=== PATIENT | female | born 1960 | race Caucasian/White ===

== ENCOUNTER 2018-02-11 08:00 | Outpatient (CLI) | payer BC, MEDICAID | END 2018-02-11 08:01 | disposition home or self-care (01) | LOC: LAB.R 08:00 | PROVIDERS: ATTEND Family Medicine | DX: M25.559 Pain in unspecified hip (principal) | CPT/HCPCS: 87491; 87591 ==

== ENCOUNTER 2018-06-07 08:55 | Observation (INO) | payer MEDICAID ==
[2018-06-07 09:16] LABS: BASOPHILS % (AUTO) 0.8 %; EOSINOPHILS # (AUTO) 0.1 10^3/uL (0.0-0.7); EOSINOPHILS % (AUTO) 1.8 %; HGB - HEMOGLOBIN 14.7 g/dL (12.0-16.0); LYMPHOCYTES # (AUTO) 1.7 10^3/uL (1.5-3.5); LYMPHOCYTES % (AUTO) 28.1 %; MEAN CORPUSCULAR HEMOGLOBIN 29.2 pg (27.0-31.0); MEAN CORPUSCULAR HGB CONC 33.5 g/dL (32.0-36.0); MEAN CORPUSCULAR VOLUME 87.2 fL (81.0-99.0); MEAN PLATELET VOLUME 9.6 fL (7.9-10.8); MONOCYTES # (AUTO) 0.5 10^3/uL (0.0-1.0); MONOCYTES % (AUTO) 8.1 %; NEUTROPHILS # (AUTO) 3.7 10^3/uL (1.5-6.6); NEUTROPHILS % (AUTO) 61.2 %; PLT - PLATELET COUNT 186 10^3/uL (130-450); RED BLOOD COUNT 5.03 10^6/uL (4.20-5.40); RED CELL DISTRIBUTION WIDTH 13.7 % (12.0-15.0)
[2018-06-07 09:33] LABS: ALBUMIN 4.4 g/dL (3.2-5.5); ALBUMIN/GLOBULIN RATIO 1.6 (1.0-2.2); BILIRUBIN,TOTAL 1.1 mg/dL (0.2-1.0); CALCIUM 9.6 mg/dL (8.5-10.3); CREATININE 0.7 mg/dL (0.4-1.0); TOTAL PROTEIN 7.2 g/dL (6.7-8.2)
--- NOTE | 2018-06-07 09:36 | ED Physician Documentation ---
PD HPI FOCAL NEURO - Stated complaint Stated Complaint: CHEST PX,DIZZY - Chief complaint Chief Complaint: General - History obtained from History obtained from: Patient - History of Present Illness Timing - onset: How many weeks ago (1 week of posterior neck pain, sharp and worse with movement. No apparent injury. With it she has had vertigo and dizziness associated with movement. She notes worse in the mornings when first getting up but continued through the day. She does have a feeling of off balance with walking most notable last evening. Yesterday she also noted some transient blurring of vision in the right eye. There is no loss of vision per se. She has not had any numbness tingling or weakness in the extremities. She has been able to talk adequately.) Timing - duration: Weeks (1) Timing - details: Abrupt onset, Still present, Waxing and waning Severity of deficit: Moderate Weakness: No: Face, Arm, Hand, Leg Numbness: No: Face, Arm, Hand, Leg Associated symptoms: Headache (posterior neck, more to the left, but both sides. ), Nausea / vomiting (nauseated but no vomiting). No: Syncope, Fall, Head injury Contributing factors: negative: Anticoagulated, Vascular dz, Atrial fibrillation Baseline status: positive: A&OX3, ambulatory, indep Similar symptoms before: Has not had sx before Recently seen: Not recently seen Review of Systems Constitutional: denies: Fever, Chills Eyes: reports: Decreased vision (last evening briefly, with diminished vision right eye for several minutes, then improved.). denies: Photophobia Ears: denies: Loss of hearing, Ear pain, Drainage/discharge, Tinnitus/ringing Nose: denies: Rhinorrhea / runny nose, Congestion Throat: denies: Sore throat Cardiac: denies: Chest pain / pressure, Palpitations Respiratory: denies: Dyspnea, Cough GI: reports: Nausea. denies: Abdominal Pain, Vomiting, Diarrhea : denies: Dysuria, Frequency Skin: denies: Rash, Lesions Neurologic: reports: Headache (posterior neck/occipital headache for several days as in HPI.). denies: Generalized weakness, Focal weakness, Numbness, Near syncope, Altered mental status PD PAST MEDICAL HISTORY - Past Medical History Past Medical History: No - Past Surgical History Past Surgical History: No - Present Medications Home Medications: Ambulatory Orders Medication Instructions Recorded Confirmed No Known Home Medications [No 06/07/18 06/07/18 Known Home Medications] - Allergies Allergies/Adverse Reactions: Allergies Allergy/AdvReac Type Severity Reaction Status Date / Time Penicillins Allergy Unknown Verified 06/07/18 09:04 muscle relaxer AdvReac Unknown Uncoded 06/07/18 09:05 pain reliever AdvReac Unknown Uncoded 06/07/18 09:05 - Social History Does the pt smoke?: No Smoking Status: Never smoker Does the pt drink ETOH?: Yes ETOH Use: Wine Does the pt have substance abuse?: No - Family History Family history: reports: Non contributory - Immunizations Immunizations are current?: Yes PD ED PE NORMAL - Vitals Vital signs reviewed: Yes - General General: Alert and oriented X 3, Well developed/nourished - HEENT HEENT: Atraumatic, PERRL, EOMI (mild nystagmus to the left), Pharynx benign - Neck Neck: Supple, no meningeal sign, No adenopathy, No JVD, No bruit - Cardiac Cardiac: RRR, No murmur - Respiratory Respiratory: Clear bilaterally - Abdomen Abdomen: Soft, Non tender - Back Back: No CVA TTP - Derm Derm: Normal color, Warm and dry, No rash - Extremities Extremities: No deformity, No tenderness to palpate, Normal ROM s pain, No edema , No calf tenderness / cord - Neuro Neuro: Alert and oriented X 3, character artist 2-12 intact, No motor deficit, No sensory deficit, Normal speech, Other (appears dizzy and off balance with sitting and standing. No ataxia per se with extremity movement. ) Eye Opening: Spontaneous Motor: Obeys Commands Verbal: Oriented GCS Score: 15 - Psych Psych: Normal mood, Normal affect NIHSS - Level of Consciousness Level of consciousness: (0) Alert, Keenly responsive LOC Questions: (0) Answers both Q's correct LOC Commands: (0) Performs both correctly - Gaze Best Gaze: (0) Normal - Visual Visual: (0) No loss - Facial Palsy Facial Palsy: (0) Normal, symmetrical movement - Motor Arms (both separate) Motor Arm (right): (0) No drift Motor Arm (left): (0) No drift - Motor Legs (both separate) Motor Leg (right): (0) No drift Motor Leg (left): (0) No drift - Limb Ataxia Limb Ataxia: (0) Absent - Sensory Sensory: (0) Normal - Best Language Best Language: (0) No aphasia - Dysarthria Dysarthria: (0) Normal - Extinction and Inattention (formally neg Extinction and inattention: (0) No abnormality - Total Score/Results Total Score/Result: 0 Results - Vitals Vitals: Vital Signs - 24 hr 06/07/18 06/07/18 06/07/18 09:00 09:30 12:08 Temperature 36.2 C L Heart Rate 72 61 74 Respiratory 18 13 14 Rate Blood Pressure 142/95 H 120/69 116/58 L O2 Saturation 97 100 100 06/07/18 06/07/18 12:30 13:00 Temperature Heart Rate 53 L 66 Respiratory 13 16 Rate Blood Pressure 110/59 L 109/75 O2 Saturation 98 100 Oxygen O2 Source Room air - Labs Labs: Laboratory Tests 06/07/18 06/07/18 06/07/18 09:10 09:10 09:10 WBC 6.0 RBC 5.03 Hgb 14.7 Hct 43.9 MCV 87.2 MCH 29.2 MCHC 33.5 RDW 13.7 Plt Count 186 MPV 9.6 Neut # (Auto) 3.7 Lymph # (Auto) 1.7 [place] # (Auto) 0.5 Eos # (Auto) 0.1 Baso # (Auto) 0.0 Absolute Nucleated RBC 0.01 Nucleated RBC % 0.1 ESR Sodium 139 Potassium 3.3 L Chloride 103 Carbon Dioxide 26 Anion Gap 10.0 BUN 13 Creatinine 0.7 Estimated GFR (MDRD) 86 L Glucose 116 H Calcium 9.6 Total Bilirubin 1.1 H AST 22 ALT 21 Alkaline Phosphatase 65 Troponin I < 0.04 Total Protein 7.2 Albumin 4.4 Globulin 2.8 Albumin/Globulin Ratio 1.6 Lipase 42 06/07/18 09:10 WBC RBC Hgb Hct MCV MCH MCHC RDW Plt Count MPV Neut # (Auto) Lymph # (Auto) [place] # (Auto) Eos # (Auto) Baso # (Auto) Absolute Nucleated RBC Nucleated RBC % ESR 5 Sodium Potassium Chloride Carbon Dioxide Anion Gap BUN Creatinine Estimated GFR (MDRD) Glucose Calcium Total Bilirubin AST ALT Alkaline Phosphatase Troponin I Total Protein Albumin Globulin Albumin/Globulin Ratio Lipase PD MEDICAL DECISION MAKING - ED course Complexity details: reviewed results, considered differential (Her neck pain may be musculoskeletal but associated with symptoms of vertigo, brief visual abnormality and a feeling of ataxia, I am worried about posterior circulation in particular for vertebral dissection. CTA was ordered of the neck and head. The results did show some thickening of the wall in the right vertebral artery that could be consistent with intramural dissection. MRI would be more conclusive. I talked with [facility] neurology who suggested observation overnight with MRI of the brain to look for cerebellar infarct and also MRA without contrast and fat weighting to distinguish thickening of the vessel wall versus hematoma. I discussed with the the patient and she is agreeable for treatment. I talked with the hospitalist who will see the patient in the hospital.), d/w patient, d/w personnel consultant (Neurology at [facility] - Her symptoms sound like posterior circulation insufficiency. The neck pain associated with the CTA finding of some thickening of the vessel that could correspond with mural thrombus would suggest the possibility of intermittent flap giving intermittent symptoms. I talked with neurology at [facility] who suggested observation with MRI of brain tomorrow to look for small posterior circulation strokes and also MRA without contrast but that we did to look for blood in the vessel wall that would distinguish dissection or not. To given aspirin in the meanwhile.) - Sepsis Event Vital Signs: Vital Signs - 24 hr 06/07/18 06/07/18 06/07/18 09:00 09:30 12:08 Temperature 36.2 C L Heart Rate 72 61 74 Respiratory 18 13 14 Rate Blood Pressure 142/95 H 120/69 116/58 L O2 Saturation 97 100 100 06/07/18 06/07/18 12:30 13:00 Temperature Heart Rate 53 L 66 Respiratory 13 16 Rate Blood Pressure 110/59 L 109/75 O2 Saturation 98 100 Oxygen O2 Source Room air Departure - Departure Disposition: ED Place in Observation Clinical Impression: Neck pain, Vertigo, Visual disturbance, Acute posterior circulation transient ischemic attack Condition: Stable Record reviewed to determine appropriate education?: Yes
[2018-06-07] MEDS ORDERED: ONDANSETRON 4 MG/2 ML VIAL IVP STA (10:08)
[2018-06-07] MEDS ORDERED: MECLIZINE 12.5 MG TABLET PO STA (10:08)
[2018-06-07] MEDS ORDERED: KETOROLAC 60 MG/2 ML VIAL IVP STA (10:08)
[2018-06-07] MEDS ORDERED: IOPAMIDOL-300 100 ML VIAL ONE (10:10)
[2018-06-07] MEDS ORDERED: IOPAMIDOL-300 100 ML VIAL IVP ONE (10:37)
--- NOTE | 2018-06-07 11:25 | XRAY Report ---
Reason: chest pressure Procedure Date: 06/07/2018 Accession Number: [id number] / [id number] Procedure: XR - Chest 2 View X-Ray CPT Code: 40730 FULL RESULT: EXAM: CHEST RADIOGRAPHY EXAM DATE: 06/07/2018 10:09 AM. CLINICAL HISTORY: Chest pain and pressure, dizzy, SOA. COMPARISON: 07/11/2011. TECHNIQUE: 2 views. FINDINGS: Lungs/Pleura: No focal opacities evident. No pleural effusion. No pneumothorax. Normal volumes. Mediastinum: Heart and mediastinal contours are unremarkable. Other: None. IMPRESSION: No acute abnormality of the chest. RAD[facility]
--- NOTE | 2018-06-07 11:27 | CT Report ---
Reason: posterior neck pain with vertigo/visual change Procedure Date: 06/07/2018 Accession Number: [id number] / [id number] Procedure: CT - Neck Angio CPT Code: FULL RESULT: EXAM: CT ANGIOGRAM NECK EXAM DATE: 06/07/2018 10:44 AM. CLINICAL HISTORY: Vertigo. COMPARISON: None. TECHNIQUE: Routine axial helical imaging was performed from the skull base through the aortic arch. Reconstructions: Routine multiplanar 3D MIP reconstructions. IV Contrast: 100 mL Isovue-300. Evaluation of arterial stenosis is based on a NASCET method of measurement. In accordance with CT protocol optimization, one or more of the following dose reduction techniques were utilized for this exam: automated exposure control, adjustment of mA and/or KV based on patient size, or use of iterative reconstructive technique. FINDINGS: As far as visualized, no acute abnormality or significant stenosis of the left cervical carotid artery. The common carotid artery origin on the left is not included on this study. Minimal irregularity of the contours of the lumen of the proximal to mid left cervical ICA without flow-limiting stenosis; imaging artifact versus mild fibromuscular dysplasia. No dissection. Unremarkable appearance of the right cervical carotid artery, no acute abnormality or significant stenosis. Minimal to mild stenosis and irregularity of the right vertebral artery V3 segment. The wall may be mildly thickened. No discrete filling defect. Stenosis does not appear hemodynamically significant. Unremarkable appearance of the left cervical vertebral artery. IMPRESSION: 1. Mild stenosis and irregularity of the right vertebral artery V3 segment. Stenosis does not appear flow-limiting. The arterial wall may be thickened. The differential includes atherosclerotic disease, fibromuscular dysplasia and arterial dissection. 2. No acute abnormality or focal flow-limiting stenosis of the cervical carotid arteries or left cervical vertebral artery. 3. Minimal nodular contour irregularity of the left cervical ICA which may represent fibromuscular dysplasia. [facility] ADDENDUM: 06/07/18 12:18 Findings discussed by telephone with the ordering provider, Dr. Rosalio Juarez, at 12:18 PM. Regarding the possibility of vertebral artery dissection, MRA/MRI of this region was discussed as a possible additional imaging test that might help clarify the presence or absence of vertebral artery dissection.
--- NOTE | 2018-06-07 11:27 | CT Report ---
Reason: posterior neck pain and headache; vertigo Procedure Date: 06/07/2018 Accession Number: [id number] / [id number] Procedure: CT - Head Angio CPT Code: FULL RESULT: EXAM: CT ANGIOGRAM HEAD. CT SCAN OF THE HEAD WITHOUT AND WITH CONTRAST. EXAM DATE: 06/07/2018 10:44 AM CLINICAL HISTORY: Vertigo. COMPARISON: None. TECHNIQUE: - CT Scan Head: Using a multidetector scanner, axial images were acquired from the foramen magnum to the skull vertex prior to and following contrast administration. - CT Angiogram: Using a multidetector scanner, high-resolution axial images were acquired from the skull base through vertex following rapid infusion of intravenous contrast. Reformats: Multiplanar MIP reformats were reconstructed. Nascet criteria used for stenosis measurement. IV Contrast: 100 mL Isovue-300. In accordance with CT protocol optimization, one or more of the following dose reduction techniques were utilized for this exam: automated exposure control, adjustment of mA and/or KV based on patient size, or use of iterative reconstructive technique. FINDINGS: Brain CT: Normal brain volume for age. No CT evidence for acute hemorrhage or stroke. No abnormal brain enhancement. Intact skull. No acute sinus or mastoid disease. Head CT angiogram: No intracranial vertebrobasilar insufficiency. Patent distal internal carotid arteries. No intracranial large-vessel occlusion, focal filling defect or proximal flow-limiting stenosis. Patent right posterior communicating artery. Patent anterior communicating artery. No evidence for aneurysm of the [place]. IMPRESSION: 1. Negative CT of the brain without and with IV contrast. 2. Negative head CTA, no evidence for large-vessel occlusion. 3. These findings do not preclude the possibility of a smaller acute ischemic infarct. RADIA
[2018-06-07] MEDS ORDERED: ASPIRIN CHEW 81 MG TABLET PO STA (13:08)
[2018-06-07] MEDS ORDERED: SODIUM CHLORIDE FLUSH 0.9% 10 ML SYRINGE IVP PRN (13:18)
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
[2018-06-07] MEDS ORDERED: GI COCKTAIL 120 ML BOTTLE PO PRN (16:58)
[2018-06-07 18:02] LABS: HB2 TOTAL 15.6 g/dL; HEMOGLOBIN A1C 0.54 g/dL; HEMOGLOBIN A1C % 5.3 % (4.6-6.2)
[2018-06-07] MEDS ORDERED: CLOPIDOGREL 300 MG TABLET PO SCH (19:37)
[2018-06-07] MEDS: ATORVASTATIN 40 MG TABLET PO SCH (20:25)
[2018-06-07] MEDS: SODIUM CHLORIDE FLUSH 0.9% 10 ML SYRINGE IVP SCH ×2 (20:26→23:44)
[2018-06-07] MEDS ORDERED: TEMAZEPAM 7.5 MG CAPSULE PO PRN (20:47)
[2018-06-07] MEDS ORDERED: ACETAMINOPHEN 325 MG TABLET PO PRN (20:47)
[2018-06-08 05:57] LABS: BASOPHILS % (AUTO) 0.7 %; EOSINOPHILS # (AUTO) 0.2 10^3/uL (0.0-0.7); EOSINOPHILS % (AUTO) 3.1 %; LYMPHOCYTES # (AUTO) 2.2 10^3/uL (1.5-3.5); LYMPHOCYTES % (AUTO) 42.7 %; MEAN CORPUSCULAR HEMOGLOBIN 29.3 pg (27.0-31.0); MEAN CORPUSCULAR HGB CONC 33.5 g/dL (32.0-36.0); MEAN CORPUSCULAR VOLUME 87.7 fL (81.0-99.0); MEAN PLATELET VOLUME 9.4 fL (7.9-10.8); MONOCYTES # (AUTO) 0.4 10^3/uL (0.0-1.0); MONOCYTES % (AUTO) 8.1 %; NEUTROPHILS # (AUTO) 2.4 10^3/uL (1.5-6.6); NEUTROPHILS % (AUTO) 45.4 %; PLT - PLATELET COUNT 173 10^3/uL (130-450); RED BLOOD COUNT 4.77 10^6/uL (4.20-5.40); RED CELL DISTRIBUTION WIDTH 14.2 % (12.0-15.0); WHITE BLOOD COUNT 5.2 x10^3/uL (4.8-10.8)
[2018-06-08 06:12] LABS: ALBUMIN 3.8 g/dL (3.2-5.5); ALBUMIN/GLOBULIN RATIO 1.7 (1.0-2.2); BILIRUBIN,TOTAL 0.5 mg/dL (0.2-1.0); CALCIUM 9.2 mg/dL (8.5-10.3); CREATININE 0.7 mg/dL (0.4-1.0); TOTAL PROTEIN 6.1 g/dL (6.7-8.2)
[2018-06-08 06:19] LABS: CHOL/HDL RATIO 1.9 (<4.4); CHOLESTEROL 239 mg/dL; HDL CHOLESTEROL 125 mg/dL; LDL CHOLESTEROL,CALCULATED 103 mg/dL; LDL/HDL RATIO 0.8 (<4.4); VLDL CHOLESTEROL 11 mg/dL
[2018-06-08] MEDS ORDERED: POLYETHYLENE GLYCOL 3350 17 GM PACKET PO SCH (09:00)
[2018-06-08] MEDS: ASPIRIN EC 325 MG TABLET PO SCH ×2 (09:47→09:48)
[2018-06-08] MEDS: SODIUM CHLORIDE FLUSH 0.9% 10 ML SYRINGE IVP SCH ×2 (09:47→17:07)
--- NOTE | 2018-06-08 10:08 | MRI Report ---
Reason: CVA Procedure Date: 06/08/2018 Accession Number: [id number] / [id number] Procedure: MRI - Brain W/O CPT Code: FULL RESULT: MRI BRAIN WITHOUT CONTRAST EXAM DATE: 06/08/2018. INDICATION: 57-year-old female with vertigo. Concern for CVA. Please assess. TECHNIQUE: 1. T1 sagittal and fat-saturated T2 coronal. 2. Axial T1 3-D, FLAIR, T2* and DWI. COMPARISON: Head CT 06/07/2018. FINDINGS: There is mild generalized prominence of the cerebral cortical sulci. Mild third/lateral ventriculomegaly is again demonstrated, likely ex vacuo. A mild amount of white matter disease is identified in the supratentorial brain, manifested as tiny T2 hyperintensities that are scattered throughout the frontal white matter. A deep/subcortical distribution predominates. There appears to be little if any involvement of the immediate periventricular regions. Flow voids are demonstrated in the main intracranial arteries. No abnormal diffusion restriction is demonstrated. No evidence of acute or chronic hemorrhage on T2* GRE sequence. No abnormal extra-axial fluid collection. No mass effect or midline shift. Limited assessment of the orbits reveals no gross pathology. The paranasal sinuses are essentially clear. No significant mastoid or middle ear effusion is demonstrated. IMPRESSION: 1. A very mild amount of white matter disease is identified as described. The findings are relatively nonspecific; however, this most likely represents chronic microangiopathy. 2. Otherwise unremarkable, unenhanced brain MRI. In particular, no evidence of infarction, hemorrhage or other acute brain pathology.
--- NOTE | 2018-06-08 10:12 | MRI Report ---
Reason: CVA Procedure Date: 06/08/2018 Accession Number: [id number] / [id number] Procedure: MRI - Angio Brain W/O (MRA) CPT Code: FULL RESULT: MR ANGIOGRAM HEAD WITHOUT CONTRAST INDICATION: 57-year-old female with vertigo. Concern for possible infarction. TECHNIQUE: 3-D [id number] MR angiography. COMPARISON: CT angiogram 06/07/2018. FINDINGS: The internal carotid arteries appear widely patent bilaterally. No definite ICA aneurysm is identified. The A1 segments of the anterior cerebral arteries are codominant. A tiny anterior communicating artery is demonstrated. There appears to be good flow-related enhancement in the imaged A2 branches bilaterally. The middle cerebral arteries are unremarkable. No aneurysm is demonstrated and there is no evidence of occlusion or hemodynamically significant stenosis affecting main branches of either MCA. The vertebral arteries are patent bilaterally. Neither PICA is identified in the field of view provided. The PICA territories may be supplied by the ipsilateral AICAs (normal anatomical variants). The basilar artery, superior cerebellar arteries and posterior cerebral arteries appear widely patent. No aneurysms are identified arising from the basilar artery trunk or apex. There is a small to moderate-sized right posterior communicating artery. No definite left posterior communicating artery is demonstrated. IMPRESSION: Unremarkable pilot station of [place] MR angiogram. No evidence of occlusion or hemodynamically significant stenosis affecting main branches of the anterior or posterior circulations.
[2018-06-08] MEDS ORDERED: GADOBUTROL 10 MMOL/10 ML VIAL ONE (15:13)
[2018-06-08] MEDS ORDERED: GADOBUTROL 10 MMOL/10 ML VIAL IVP ONE (16:35)
--- NOTE | 2018-06-08 17:19 | DISCHARGE SUMMARY ---
Discharge Summary Discharge Date: 06/08/18 Discharging Provider: DARLINE Alves Code Status: Attempt Resuscitation Condition at Discharge: Good Discharge Disposition: 01 Home, Self Care - ALLERGIES Allergies/Adverse Reactions: Allergies Allergy/AdvReac Type Severity Reaction Status Date / Time Penicillins Allergy Unknown Verified 06/07/18 09:04 muscle relaxer AdvReac Unknown Uncoded 06/07/18 09:05 pain reliever AdvReac Unknown Uncoded 06/07/18 09:05 - MEDICATIONS Home Medications: Ambulatory Orders Medication Instructions Recorded Confirmed No Known Home Medications [No 06/07/18 06/08/18 Known Home Medications] - PHYSICAL EXAM AT DISCHARGE General Appearance: positive: No acute distress, Alert Eyes Bilateral: positive: Normal inspection, PERRL ENT: positive: ENT inspection nml, Pharynx nml, No signs of dehydration Neck: positive: Nml inspection, Thyroid nml, No JVD, Trachea midline Respiratory: positive: Chest non-tender, No respiratory distress, Breath sounds nml Cardiovascular: positive: Regular rate & rhythm, No murmur, No gallop Peripheral Pulses: positive: 2+ Abdomen: positive: Non-tender, No organomegaly, Nml bowel sounds Back: positive: Nml inspection Skin: positive: Color nml, No rash, Warm, Dry Extremities: positive: Non-tender, Full ROM, Nml appearance, No pedal edema Neurologic/Psychiatric: positive: Oriented x3, CN's nml (2-12), Motor nml, Sensation nml, Mood/affect nml Reflexes: Bicep (R): 4+, Bicep (L): 4+ - LABS Result Diagrams: 06/08/18 05:42 06/08/18 05:42 - DIAGNOSTIC IMAGING Diagnostic Imaging Results: Prelim report reviewed, Final report reviewed - TIME SPENT Time Spent in Discharge (Minutes): 55
--- NOTE | 2018-06-08 18:28 | MRI Report ---
Reason: dissection, visual disturbance Procedure Date: 06/08/2018 Accession Number: [id number] / [id number] Procedure: MRI - Angio Neck W/WO (MRA) CPT Code: FULL RESULT: EXAM: MR ANGIOGRAM NECK EXAM DATE: 06/08/2018 04:26 PM. CLINICAL HISTORY: 57-year-old with visual disturbances and prior CTA suggesting potential right vertebral artery dissection COMPARISON: CTA head and neck 06/07/2018; MRA head 06/08/2018. TECHNIQUE: Multiplanar, multisequence MRA sequences of the neck were performed. Other: None. Post-processing: Multiplanar 3D MIP reconstructions. IV Contrast: 10 cc Gadavist. Evaluation of arterial stenosis is based on a NASCET method of measurement. FINDINGS: RIGHT Common Carotid: Patent. No dissection or significant stenosis. Internal Carotid: Patent. No dissection or significant stenosis. External Carotid: Patent. No dissection or significant stenosis. Vertebral: There is T1 signal hyperintensity around the wall of the distal V3 segment of the right vertebral artery with mild irregularity and mild stenosis of the vertebral artery dissection. LEFT Common Carotid: Patent. No dissection or significant stenosis. Internal Carotid: Minimal nodular contour irregularity of the cervical ICA similar to CT 06/07/2018. Finding may represent fibromuscular dysplasia. External Carotid: Patent. No dissection or significant stenosis. Vertebral: Patent. No dissection or significant stenosis. Intracranial Circulation: No stenoses or aneurysms in the visualized portion of the intracranial vasculature. Other: The soft tissues, bones, and lung apices are unremarkable. IMPRESSION: 1. There is short segment of T1 signal hyperintensity around the wall of the distal V3 segment of the right vertebral artery with mild irregularity and mild stenosis of the vertebral artery dissection, that appears similar to CTA 06/07/2018. Finding is concerning for focal short segment of dissection though the fibromuscular dysplasia is not excluded. 2. Minimal nodular contour irregularity of the cervical ICA similar to CT 06/07/2018. Finding may represent fibromuscular dysplasia. 3. Otherwise the vasculature of the neck appears normal. RADIA
--- NOTE | 2018-06-08 21:35 | Discharge Plan ---
Discharge Plan Disposition: 01 Home, Self Care Prescriptions: Aspirin EC [Ecotrin] 325 mg PO DAILY #30 tablet Atorvastatin [Lipitor] 20 mg PO QPM #30 tablet Clopidogrel [Plavix] 75 mg PO DAILY #30 tablet Diet: Cardiac Activity Restrictions: No Restrictions Additional Instructions or Follow Up instructions: Follow up with PCP and with outpatient neurology No Smoking: If you smoke, Please STOP! Call for help.
[2018-06-08] MEDS: ATORVASTATIN 40 MG TABLET PO SCH (21:37)
[2018-06-08 21:49] VITALS: BP 124/54
--- NOTE | 2018-06-09 05:42 | DISCHARGE SUMMARY ---
Physician: Sobeida Vaughan MD DATE OF ADMISSION: 06/07/2018 DATE OF DISCHARGE: 06/08/2018 DISCHARGE DIAGNOSES 1. Distal right vertebral artery dissection/short segment. MRI negative for cerebrovascular accident. 2. Possible fibromuscular dysplasia of cervical internal carotid artery. 3. Cervical radiculopathy and degenerative spine disease with symptoms of bilateral neck and shoulder pain. 4. Admission problems of vertigo, neck pain and headache could be secondary to cervical radiculopathy versus short segment right vertebral artery dissection. It is unknown whether there was clinical significance of the vertebral dissection or this was an incidental finding. 5. Perimenopausal symptoms, for which we recommend outpatient followup. DISCHARGE MEDICATIONS 1. Plavix 75 mg p.o. daily. 2. Lipitor 20 mg p.o. daily. 3. Aspirin 325 mg p.o. daily. DISCHARGE RECOMMENDATIONS 1. Follow up with primary care physician. 2. Follow up with outpatient neurology to possible fibromuscular dysplasia and discuss short segment right vertebral artery dissection and its clinical significance. 3. Prescribed double antiplatelet therapy and statin for stroke protection. We will recommend these medications to be continued. 4. For perimenopausal symptoms, we recommend followup with primary care physician, Urology and any other specialist that is felt feasible by the PCP. DISCHARGE CONDITION: Vital signs stable. Patient was alert, oriented, neurologically nonfocal. She verbalized understanding of discharge plan and followup. BRIEF PRESENTATION AND HOSPITAL COURSE: Patient is a 57-year-old, white female who has no significant past medical history. She presented with multiple chronic complaints, which included chronic neck and musculoskeletal pain for which she actually has been seeing a chiropractor. She had these underlying symptoms; however, prior to coming to the ER, she developed a somewhat sudden onset of worsening of the neck pain, and developed additional symptoms of headache and vertigo. She also noted that when she presented, her blood pressure was on the lower side. She might have been exhausted and dehydrated. She mentioned that the low blood pressure likely played into her vertigo. However, even after her blood pressure somewhat increased, she remained with complaints of dizziness. She underwent brain imaging which showed multiple abnormalities. These abnormalities were discussed initially with on-call neurologist at [facility]. Subsequently, for a second opinion, we consulted on-call Neurology at [facility]. Dr. Bonita Hooks graciously accepted to review the scans and advise on the management. Scans were pushed over to Alicia Gregg, were reviewed by the neurologist and by neuroradiologist as well. It was confirmed that patient did not have any abnormality that would require further hospitalization or transfer to higher level of care. Double antiplatelet therapy and statin was recommended. Therefore, the patient was discharged in stable condition. Prior to discharge, I extensively discussed the findings, management options and need for followup with the patient. She verbalized understanding and discharged in stable condition. Prior to discharge, she was hemodynamically stable, neurologically intact, and her symptoms improved. Time spent in the discharge of this patient was 2 hours, which included coordination of this patient's care with Alicia Gregg on-call neurologist, Dr. Bonita Hooks, plus discussing discharge plan with patient extensively. TD: 06/09/2018 04:12 DILIP
== END 2018-06-08 22:01 | disposition home or self-care (01) ==
LOC: ED 08:55 → MS2 13:18 → OBS 20:18
PROVIDERS: ADMIT Nurse Practitioner; ATTEND Internal Medicine
DX: R42 Dizziness and giddiness (principal); R51 Headache; R07.2 Precordial pain; I77.74 Dissection of vertebral artery; M47.22 Other spondylosis with radiculopathy, cervical region; H55.00 Unspecified nystagmus; H54.62 Unqualified visual loss, left eye, normal vision right eye; H53.8 Other visual disturbances; R00.1 Bradycardia, unspecified; I95.9 Hypotension, unspecified; R01.1 Cardiac murmur, unspecified; N95.1 Menopausal and female climacteric states; G89.29 Other chronic pain; I10 Essential (primary) hypertension; K21.9 Gastro-esophageal reflux disease without esophagitis; F10.982 Alcohol use, unspecified with alcohol-induced sleep disorder; Z82.49 Family history of ischemic heart disease and other diseases of the circulatory system
CPT/HCPCS: 36415; 70496; 70498; 70544; 70549; 70551; 71046; 80053; 80061; 82977; 83036; 83690; 83735; 84443; 84484; 85025; 85651; 93005; 93306; 96374; 96375; 97162; 99284; A9270; A9585; G0378; G8978; G8979; G8980; Q9967; 83721

== ENCOUNTER 2018-06-11 10:18 | Outpatient (CLI) | payer MEDICAID | END 2018-06-11 10:19 | disposition home or self-care (01) | LOC: LAB.F 10:18 | PROVIDERS: ATTEND Internal Medicine | DX: R19.4 Change in bowel habit (principal) | CPT/HCPCS: 36415; 84443 ==

== ENCOUNTER 2019-03-01 08:00 | Outpatient (CLI) | payer MEDICAID | END 2019-03-01 23:59 | disposition home or self-care (01) | LOC: LAB.R 08:00 | PROVIDERS: ATTEND Obstetrics & Gynecology | DX: N39.0 Urinary tract infection, site not specified (principal) | CPT/HCPCS: 87086 ==

== ENCOUNTER 2019-05-14 | Outpatient (CLI) | payer MEDICAID | END 2019-05-14 23:59 | disposition home or self-care (01) | DX: J02.9 Acute pharyngitis, unspecified (principal) ==

== ENCOUNTER 2022-10-16 04:58 | Outpatient (CLI) | payer MEDICAID | END 2022-10-16 04:59 | disposition critical access hospital (66) | LOC: EMS 04:58 | DX: M54.2 Cervicalgia (principal) | CPT/HCPCS: A0425; A0429; A0999 ==

== ENCOUNTER 2022-10-16 05:22 | Emergency (ER) | payer MEDICAID ==
[2022-10-16] MEDS ORDERED: KETOROLAC 30 MG/ML VIAL IM STA (05:40)
--- NOTE | 2022-10-16 05:43 | ED Physician Documentation ---
History of Present Illness - Stated complaint Stated Complaint: NECK PX - Chief complaint Chief Complaint: Trauma Hd/Nk - History obtained from History obtained from: Patient - Additonal information Additional information: 61-year-old woman with PMH cervical fibromuscular dysplasia presents with bilateral posterior neck pain for the past 5 to 6 days. Patient visited a chiropractor yesterday and felt briefly better but then it worsened again and she is in severe pain this morning prompting ED visit. Pain is constant, gradual onset, spasming intermittently, located at the base of the skull radia ting down the center of the neck. Denies fever, headache, neurological deficit, dizziness. Review of Systems Constitutional: denies: Fever, Chills GI: denies: Nausea Musculoskeletal: reports: Neck pain Neurologic: denies: Altered mental status, Headache PD PAST MEDICAL HISTORY - Past Medical History Cardiovascular: None Respiratory: None Neuro: Headaches Endocrine/Autoimmune: None GI: GERD, Chronic diarrhea, Chronic constipation SPECIAL EDUCATION INCLUSION TEACHER: None : None HEENT: None Psych: None Musculoskeletal: None Derm: None - Past Surgical History Past Surgical History: No - Present Medications Home Medications: Ambulatory Orders Medication Instructions Recorded Confirmed Oxycodone HCl/Acetaminophen 1 each PO Q4H PRN #10 tablet 10/16/22 [Percocet 10-325 mg Tablet] - Allergies Allergies/Adverse Reactions: Allergies Allergy/AdvReac Type Severity Reaction Status Date / Time Penicillins Allergy Unknown Verified 06/07/18 09:04 muscle relaxer AdvReac Unknown Uncoded 06/07/18 09:05 pain reliever AdvReac Unknown Uncoded 06/07/18 09:05 - Social History Does the pt smoke?: No Smoking Status: Never smoker Does the pt drink ETOH?: Yes Does the pt have substance abuse?: No - Immunizations Immunizations are current?: Yes - POLST Patient has POLST: No POLST Status: Full Code PD ED PE NORMAL - Vitals Vital signs reviewed: Yes - General General: Alert and oriented X 3, No acute distress, Well developed/nourished - HEENT HEENT: Atraumatic, PERRL, EOMI - Neck Neck: Supple, no meningeal sign, No bony TTP, Other (BL posterior neck ttp in muscle distribution) Results - Vitals Vitals: Vital Signs - 24 hr 10/16/22 10/16/22 10/16/22 05:20 05:30 05:54 Temperature 36.4 C L Heart Rate 75 Respiratory 16 16 16 Rate Blood Pressure 134/73 H O2 Saturation 100 10/16/22 06:04 Temperature Heart Rate 60 Respiratory 16 Rate Blood Pressure 119/78 O2 Saturation 100 Oxygen O2 Source Room air PD Medical Decision Making - ED course ED course: 61yF p/w neck pain that is reproducible on palpation, suggesting muscular origin. She has no FND and normal neurologic exam, suggesting vascular cause for pain such as vertebral artery dissection as unlikely etiology. no fever or meningismus, no AMS, therefore meningitis unlikely. will treat symptomatically, reevaluate. Departure - Departure Disposition: Home, Self Care Clinical Impression: Neck pain Condition: Good Instructions: ED Neck Pain No Trauma Prescriptions: Oxycodone HCl/Acetaminophen [Percocet 10-325 mg Tablet] 1 each PO Q4H PRN #10 tablet PRN Reason: Pain Comments: You are seen in the emergency department for neck spasm and pain. Toradol and Percocet medications as well as a shot of morphine with improvement in pain. Please follow-up with your primary care provider. Return to the emergency department for new or worsening symptoms or other concerns. Electronic prescription for Percocet was sent to [email or web address] in [email or web address].
[2022-10-16 06:05] VITALS: BP 119/78
[2022-10-16] MEDS ORDERED: MORPHINE 10 MG/ML VIAL IM STA (06:46)
[2022-10-16] MEDS ORDERED: oxyCODONE 5 MG TABLET PO STA ×2 (07:43→08:51)
== END 2022-10-16 09:19 | disposition home or self-care (01) ==
LOC: EDUNIT# → ED 05:22
DX: M54.2 Cervicalgia (principal)
CPT/HCPCS: 96372; 99283; A9270